=== PATIENT | male | born 1985 | race Caucasian/White ===

== ENCOUNTER 2018-01-05 17:33 | Observation (INO) | payer SELFPAY ==
[2018-01-05] MEDS ORDERED: MORPHINE 4 MG/ML SYR ONE (18:30)
[2018-01-05] MEDS ORDERED: NA CHLORIDE 0.9% 1,000 ML ONE (18:31)
[2018-01-05] MEDS ORDERED: ONDANSETRON 4 MG/2 ML VIAL ONE (18:31)
--- NOTE | 2018-01-05 19:26 | RAD REPORT ---
EXAM DESCRIPTION: RAD - Foot Right 3 View - 01/05/2018 6:36 pm CLINICAL HISTORY: Laceration to foot COMPARISON: None. FINDINGS: Large soft tissue laceration is seen along the plantar lateral aspect of the foot. Small r adiopaque debris is present in the laceration. No fracture is seen.
[2018-01-05 19:41] LABS: Absolute Lymphocytes (CBC) 0.8 K/uL (0.7-4.9); Absolute Monocytes 0.9 K/uL (0.1-1.3); Absolute Neutrophil 12.3 K/uL (1.8-8.0); Basophils % 0.3 % (0-1.3); Eosinophils % 0.2 % (0-4.4); Hematocrit 42.3 % (39.6-49.0); Lymphocytes % 5.9 % (15.3-44.8); MCH 30.6 pg (27.0-35.0); MCV 88.2 fL (80-100); MPV 8.1 fL (7.6-11.3); Monocytes % 6.7 % (3.3-12.3)
[2018-01-05 19:45] LABS: Protime INR 1.12
[2018-01-05] MEDS ORDERED: CEFAZOLIN/SWI 1gm 1 GM/10 ML SYR ONE (19:46)
[2018-01-05 19:52] LABS: Potassium 3.9 mEq/L (3.6-5.0)
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
[2018-01-05] MEDS ORDERED: CEFTRIAXONE/SWI 1gm 1 GM/10 ML SYR ONE (19:59)
[2018-01-05] MEDS ORDERED: FENTANYL CITR 250 MCG/5 ML ONE (20:35)
[2018-01-05] MEDS ORDERED: PROPOFOL 200 MG/20 ML VIAL IV ONE ×2 (20:35→21:06)
[2018-01-05] MEDS ORDERED: ONDANSETRON 4 MG/2 ML VIAL IV PRN (20:41)
[2018-01-05] MEDS ORDERED: MORPHINE 4 MG/ML SYR IV PRN (20:41)
[2018-01-05] MEDS ORDERED: ACETAMINOPHEN 500 MG TAB PO PRN (20:41)
[2018-01-05] MEDS ORDERED: Ringers Lactate 1,000 ML IV ONE (20:44)
[2018-01-05] MEDS ORDERED: NA CIT/CITRIC AC 30 ML ORAL UDC ONE ×2 (20:44→20:46)
[2018-01-05] MEDS ORDERED: D5 0.45 NS 1,000 ML IV SCH (21:00)
[2018-01-05] MEDS ORDERED: GLYCOPYRROLATE 0.2 MG/ML SYR ONE (21:13)
[2018-01-05] MEDS ORDERED: ONDANSETRON HCL 40 MG/20 ML VIAL ONE (21:22)
[2018-01-05] MEDS ORDERED: KETOROLAC 30 MG/ML INJ ONE (21:22)
[2018-01-05] MEDS ORDERED: DEXAMETHASONE 10 MG/ML VIAL ONE (21:23)
[2018-01-05] MEDS ORDERED: MEPERIDINE HCL 25 MG/0.5 ML ONE (23:24)
[2018-01-05] MEDS: MEPERIDINE HCL 50 MG/ML AMP ONE ×2 (23:30→23:40)
--- NOTE | 2018-01-05 23:31 | P.BOP ---
Preoperative diagnosis: right complex laceration of foot x2 with peroneal tendon laceration Postoperative diagnosis: same Primary procedure: right I&D of lacerations with closure x2 and peroneal tendon repair x2 Estimated blood loss: 20 ccs Anesthesia: General Transferred to: Recovery Room Condition: Good
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
[2018-01-06] MEDS ORDERED: MEPERIDINE HCL 25 MG/0.5 ML ONE (00:01)
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
[2018-01-06] MEDS ORDERED: CEFAZOLIN/SWI 1gm 1 GM/10 ML SYR ONE (00:57)
[2018-01-06] MEDS ORDERED: CEFAZOLIN/NS 1gm 1 GM/50 ML BAG IVPB SCH (01:00)
[2018-01-06] MEDS ORDERED: CEFTRIAXONE 1 GM/NS 50 ML 1 GM/50 ML BAG IV SCH (06:00)
[2018-01-06] MEDS ORDERED: Morphine 2 MG/2 ML SYR IV PRN ×3 (07:13→08:12)
[2018-01-06] MEDS ORDERED: PNEUMOCOCCAL VACCINE 0.5 ML IMVAC ONE (08:00)
[2018-01-06] MEDS: CEFAZOLIN/SWI 1gm 1 GM/10 ML SYR IVP SCH ×2 (09:00→15:14)
[2018-01-06] MEDS ORDERED: DOXYCYCLINE 100 MG CAP PO SCH (09:00)
[2018-01-06] MEDS ORDERED: FAMOTIDINE 20 MG/2 ML VIAL IV SCH (09:00)
[2018-01-06] MEDS: HYDROCODONE/APAP 7.5/325 MG TAB PO PRN ×2 (09:36→16:05)
== END 2018-01-06 16:25 | disposition home or self-care (01) ==
LOC: ER 17:33 → ERHOLD 21:07 → 2ND 21:34
PROVIDERS: ADMIT Orthopaedic Surgery; ATTEND Orthopaedic Surgery
PROC: 0JQQ0ZZ Repair Right Foot Subcutaneous Tissue and Fascia, Open Approach (ICD-10-PCS; 2018-01-05)
PROC: 0LQS0ZZ Repair Right Ankle Tendon, Open Approach (ICD-10-PCS; principal; 2018-01-05 21:00)
DX: S91.321A Laceration with foreign body, right foot, initial encounter (principal); S86.321A Laceration of muscle(s) and tendon(s) of peroneal muscle group at lower leg level, right leg, initial encounter; S96.821A Laceration of other specified muscles and tendons at ankle and foot level, right foot, initial encounter; W26.8XXA Contact with other sharp object(s), not elsewhere classified, initial encounter; Y93.I9 Activity, other involving external motion; Y92.838 Other recreation area as the place of occurrence of the external cause
CPT/HCPCS: 36415; 80048; 85025; 85610; 85730; 88300; 97163; 99285; G0378; J0690; J0696; J1100; J2175; J2405; J7030